=== PATIENT | female | born 1955 | race Two or more races ===

== ENCOUNTER 2020-09-24 18:44 | Inpatient (IN) | payer MEDICARE, MEDICAID ==
[~2020-09-24] VITALS: Ht 165.1 cm; Wt 60.4 kg
[2020-09-24] MEDS ORDERED: ACETAMINOPHEN 325 MG TAB PO ONE (19:45)
[2020-09-24] MEDS ORDERED: ACETAMINOPHEN 500 MG TAB PO ONE (19:45)
[2020-09-24 19:55] LABS: Basophils # (auto) 0.1 10 ^3/uL (0-0.2); Eosinophils # (auto) 0 10 ^3/uL (0-0.8); Eosinophils % (auto) 0.4 % (0.0-7.0); Hematocrit 31.1 % (36.0-46.0); Hemoglobin 10.6 g/dL (12.2-16.2); Lymphocytes # (auto) 2.4 10 ^3/uL (0.4-5.4); Lymphocytes % (auto) 24.6 % (10.0-50.0); Mean Corpuscular Hemoglobin 27.1 pg (28.0-32.0); Mean Corpuscular Hgb Conc. 33.9 g/dL (32.0-36.0); Monocytes # (auto) 0.4 10 ^3/uL (0-1.3); Monocytes % (auto) 3.8 % (0.0-12.0); Neutrophils # (auto) 6.7 10 ^3/uL (1.6-8.6); Neutrophils % (auto) 70.2 % (37.0-80.0); Nucleated Red Blood Cells % 0.1 %; Platelet Count (auto) 210 10^3/uL (140-450); Red Blood Cells 3.89 10^6/uL (4.0-5.20); Red Cell Distribution Width 19.8 % (11.8-14.3); White Blood Cell 9.6 10^3/uL (4.4-10.8)
[2020-09-24 20:12] LABS: Albumin 3.8 g/dL (3.4-5.0); Calcium 8.6 mg/dL (8.5-10.1); Magnesium 1.1 mg/dL (1.6-2.6); Potassium 4.2 mmol/L (3.5-5.1)
[2020-09-24] MEDS ORDERED: ASPirin 325 MG TAB PO ONE ×2 (20:15→21:00)
[2020-09-24 20:18] LABS: BUN/Creatinine Ratio 17.6; Bilirubin, Total 0.4 mg/dL (0.2-1.0); Total Protein 7.9 g/dL (6.4-8.2)
[2020-09-24 20:19] LABS: INR 1.04 (0.9-1.15); Partial Thromboplastin Time 29.9 sec (23.0-31.2)
[2020-09-24] MEDS ORDERED: TEMAZEPAM 15 MG CAP PO PRN (21:30)
[2020-09-24] MEDS ORDERED: MORPHINE SULF INJ 2 MG/ML SYRINGE 1ML IV PRN (21:30)
[2020-09-24] MEDS ORDERED: ACETAMINOPHEN 325 MG TAB PO PRN (21:30)
[2020-09-24] MEDS ORDERED: NITROGLYCERIN 0.4 MG SL TAB SL PRN (21:30)
[2020-09-24] MEDS ORDERED: DEXTROSE (50%) 50ML SYRG IV PRN (21:30)
[2020-09-24] MEDS ORDERED: ONDANSETRON HCL 4 MG/2 ML VIAL IV PRN (21:30)
[2020-09-24] MEDS: InsuLIN REG 1unit/0.01ml Soln (100units/ml) SC SCH (22:00)
[2020-09-24] MEDS: APIXABAN 2.5 MG TAB PO SCH (22:18)
[2020-09-24] MEDS: ATORVASTATIN 20 MG TAB PO SCH (22:18)
[2020-09-24] MEDS: ACCU-CHEK COMFORT CURVE STRIP VI SCH (22:19)
[2020-09-24] MEDS: METOPROLOL TARTRATE 50 MG TAB PO SCH (22:19)
[2020-09-24 22:40] VITALS: BP 138/89
[2020-09-25] MEDS ORDERED: ATOR80TA PO (02:06)
[2020-09-25] MEDS ORDERED: METO-158 PO (02:06)
[2020-09-25] MEDS ORDERED: AML5T PO (02:06)
[2020-09-25] MEDS ORDERED: ASPI-231 PO (02:06)
[2020-09-25] MEDS ORDERED: PANT40TA2 PO (02:06)
[2020-09-25] MEDS ORDERED: BENA20TA PO (02:06)
[2020-09-25] MEDS ORDERED: METF-372 PO (02:06)
[2020-09-25 05:00] VITALS: BP 118/62
[2020-09-25] MEDS: InsuLIN REG 1unit/0.01ml Soln (100units/ml) SC SCH ×4 (06:17→21:06)
[2020-09-25] MEDS: ACCU-CHEK COMFORT CURVE STRIP VI SCH ×4 (06:17→21:11)
[2020-09-25 07:17] LABS: Basophils # (auto) 0 10 ^3/uL (0-0.2); Basophils % (auto) 0.3 % (0.0-2.0); Eosinophils # (auto) 0.1 10 ^3/uL (0-0.8); Eosinophils % (auto) 1.1 % (0.0-7.0); Hematocrit 28.4 % (36.0-46.0); Hemoglobin 9.8 g/dL (12.2-16.2); Lymphocytes # (auto) 2.3 10 ^3/uL (0.4-5.4); Lymphocytes % (auto) 39.4 % (10.0-50.0); Mean Corpuscular Hemoglobin 27.4 pg (28.0-32.0); Mean Corpuscular Hgb Conc. 34.6 g/dL (32.0-36.0); Mean Corpuscular Volume 79.3 fL (80.0-100.0); Monocytes # (auto) 0.4 10 ^3/uL (0-1.3); Monocytes % (auto) 7.3 % (0.0-12.0); Neutrophils % (auto) 51.9 % (37.0-80.0); Nucleated Red Blood Cells % 0.1 %; Platelet Count (auto) 186 10^3/uL (140-450); Red Blood Cells 3.58 10^6/uL (4.0-5.20); Red Cell Distribution Width 19.4 % (11.8-14.3); White Blood Cell 5.9 10^3/uL (4.4-10.8)
[2020-09-25 08:00] VITALS: BP 129/72
[2020-09-25] MEDS: APIXABAN 2.5 MG TAB PO SCH ×2 (09:02→21:10)
[2020-09-25] MEDS: PANTOPRAZOLE 40 MG TAB PO SCH (09:03)
[2020-09-25] MEDS: amLODIPine BESYLATE 5 MG TAB PO SCH (09:03)
[2020-09-25] MEDS: METOPROLOL TARTRATE 50 MG TAB PO SCH ×2 (09:03→21:41)
[2020-09-25 12:00] VITALS: BP 126/56
[2020-09-25] MEDS ORDERED: LORazepam 2MG/ML-1ML VIAL IV ONE (13:45)
[2020-09-25] MEDS ORDERED: MAGNESIUM SULFATE 1GM/100ML 100 ML IV ONE (14:15)
[2020-09-25 16:00] VITALS: BP 132/69
[2020-09-25] MEDS: ATORVASTATIN 20 MG TAB PO SCH (21:08)
[2020-09-25 21:47] VITALS: BP 138/75
[2020-09-25] MEDS ORDERED: ASPirin 81 mg TAB PO SCH (22:00)
[2020-09-26 05:00] VITALS: BP 105/60
[2020-09-26 05:33] LABS: Basophils # (auto) 0 10 ^3/uL (0-0.2); Basophils % (auto) 0.3 % (0.0-2.0); Eosinophils # (auto) 0.1 10 ^3/uL (0-0.8); Eosinophils % (auto) 1.5 % (0.0-7.0); Hematocrit 27.4 % (36.0-46.0); Hemoglobin 9.6 g/dL (12.2-16.2); Lymphocytes # (auto) 1.8 10 ^3/uL (0.4-5.4); Mean Corpuscular Hemoglobin 27.9 pg (28.0-32.0); Mean Corpuscular Hgb Conc. 34.9 g/dL (32.0-36.0); Monocytes # (auto) 0.4 10 ^3/uL (0-1.3); Monocytes % (auto) 8.7 % (0.0-12.0); Neutrophils # (auto) 2.3 10 ^3/uL (1.6-8.6); Neutrophils % (auto) 50.5 % (37.0-80.0); Platelet Count (auto) 166 10^3/uL (140-450); Red Blood Cells 3.43 10^6/uL (4.0-5.20); Red Cell Distribution Width 19.4 % (11.8-14.3); White Blood Cell 4.6 10^3/uL (4.4-10.8)
[2020-09-26 05:48] LABS: Potassium 3.5 mmol/L (3.5-5.1)
[2020-09-26 05:55] LABS: Albumin 3.1 g/dL (3.4-5.0); BUN/Creatinine Ratio 22.3; Bilirubin, Total 0.3 mg/dL (0.2-1.0); Calcium 8.7 mg/dL (8.5-10.1); Magnesium 1.8 mg/dL (1.6-2.6); Total Protein 6.5 g/dL (6.4-8.2)
[2020-09-26] MEDS: ACCU-CHEK COMFORT CURVE STRIP VI SCH (06:29)
[2020-09-26] MEDS: InsuLIN REG 1unit/0.01ml Soln (100units/ml) SC SCH (06:30)
[2020-09-26 09:09] VITALS: BP 157/81
[2020-09-26] MEDS: PANTOPRAZOLE 40 MG TAB PO SCH (10:07)
[2020-09-26] MEDS: APIXABAN 2.5 MG TAB PO SCH (10:07)
[2020-09-26] MEDS: amLODIPine BESYLATE 5 MG TAB PO SCH (10:08)
[2020-09-26] MEDS: METOPROLOL TARTRATE 50 MG TAB PO SCH (10:09)
[2020-09-26] MEDS ORDERED: APIX2.5T PO ×2 (10:38→10:41)
[2020-09-26] MEDS ORDERED: MET50T PO (10:38)
[2020-09-26] MEDS ORDERED: BENA10TA14 PO (10:38)
[2020-09-26] MEDS ORDERED: DILT-14 PO (10:38)
[2020-09-26] MEDS ORDERED: DIGO0.12 PO (10:38)
[2020-09-26] MEDS ORDERED: OMEP20TA PO (10:38)
[2020-09-26] MEDS ORDERED: ACET-6 PO (10:38)
[2020-09-26] MEDS ORDERED: CHOLECALCIFEROL (VITD3) 2,000 UNIT CAP/TAB PO ONE (11:00)
[2020-09-26] MEDS ORDERED: IBUPROFEN 400 MG TAB PO ONE (11:00)
[2020-09-26] MEDS ORDERED: MAGNESIUM SULFATE 1GM/100ML 100 ML IV ONE (11:00)
[2020-09-26 16:39] VITALS: BP 153/64
[2020-09-26] MEDS ORDERED: ATORVASTATIN 20 MG TAB PO SCH ×2 (22:00)
[2020-09-26] MEDS ORDERED: ASPirin 81 mg TAB PO SCH (22:00)
[2020-09-27] MEDS ORDERED: CHOLECALCIFEROL (VITD3) 2,000 UNIT CAP/TAB PO SCH (10:00)
[2020-09-27] MEDS ORDERED: dilTIAZem 120MG ER CAP PO SCH (10:00)
== END 2020-09-26 12:15 | disposition home health service (06) | DRG 64 ==
LOC: ER 18:47 → TELE 21:16 → TELE-WESTW 22:36
PROVIDERS: ADMIT Nurse Practitioner; ATTEND Internal Medicine
DX: I63.9 Cerebral infarction, unspecified (principal); I21.A1 Myocardial infarction type 2; I50.33 Acute on chronic diastolic (congestive) heart failure; I13.0 Hypertensive heart and chronic kidney disease with heart failure and stage 1 through stage 4 chronic kidney disease, or unspecified chronic kidney disease; Z20.822 Contact with and (suspected) exposure to COVID-19; D63.8 Anemia in other chronic diseases classified elsewhere; E78.5 Hyperlipidemia, unspecified; E55.9 Vitamin D deficiency, unspecified; N18.32 Chronic kidney disease, stage 3b; M31.6 Other giant cell arteritis; E11.22 Type 2 diabetes mellitus with diabetic chronic kidney disease; Z53.29 Procedure and treatment not carried out because of patient's decision for other reasons; I25.10 Atherosclerotic heart disease of native coronary artery without angina pectoris; G93.89 Other specified disorders of brain; I48.91 Unspecified atrial fibrillation; Z79.84 Long term (current) use of oral hypoglycemic drugs; Z95.1 Presence of aortocoronary bypass graft
CPT/HCPCS: 36415; 70450; 70551; 71045; 80053; 80061; 80162; 82306; 82962; 83036; 83735; 83880; 84443; 84484; 85025; 85610; 85730; 86141; 87426; 93005; 93306; 93886; 96365; G0378; J1815